=== PATIENT | female | born 1940 | race Caucasian/White ===

== ENCOUNTER 2018-02-07 08:59 | Day surgery (SDC) | payer OTHER ==
[2018-02-07] MEDS: TETRACAINE 0.5% UNIT-DOSE OP PRN ×2 (09:45→10:25)
[2018-02-07] MEDS: BETADINE OPTH PREP OP PRN ×2 (09:45→10:25)
[2018-02-07] MEDS: CYCLOGYL 2% OPTH OP PRN ×3 (09:46→09:56)
[2018-02-07] MEDS ORDERED: ZOFRAN 4 MG/2 ML IVP ONE (09:56)
[2018-02-07] MEDS ORDERED: LIDOCAINE 1% 20 ML MDV ID STA (09:56)
[2018-02-07] MEDS ORDERED: BRIMONIDINE TARTRATE 0.2% OPTH SOL OP PRN (09:56)
[2018-02-07 10:04] VITALS: TEMP 97.6
[2018-02-07] MEDS: DEX-MOXI-KETOR OPTH INJ 1/0.5/0.4 MG/ML IO ONE ×2 (10:26→10:32)
[2018-02-07] MEDS: BSS WITH EPINEPHRINE OP ONE ×2 (10:26→10:32)
[2018-02-07] MEDS: LIDOCAINE 1%/PHENYLEPHRINE 1.5% BSS (SURGERY) INTRAOCULA ONE ×2 (10:26→10:32)
[2018-02-07] MEDS ORDERED: ZOFRAN 4 MG/2 ML ONE (10:27)
[2018-02-07] MEDS ORDERED: SUBLIMAZE ONE (10:27)
[2018-02-07] MEDS ORDERED: VERSED ONE (10:27)
[2018-02-08 13:08] VITALS: BP 132/52
== END 2018-02-07 11:50 | disposition home or self-care (01) ==
LOC: SURG 08:59
PROVIDERS: ATTEND Ophthalmology
DX: H25.812 Combined forms of age-related cataract, left eye (principal)

== ENCOUNTER 2018-02-21 08:23 | Day surgery (SDC) ==
[2018-02-21] MEDS: TETRACAINE 0.5% UNIT-DOSE OP PRN ×2 (08:55→09:22)
[2018-02-21] MEDS: BETADINE OPTH PREP OP PRN ×2 (08:55→09:22)
[2018-02-21] MEDS: CYCLOGYL 2% OPTH OP PRN ×3 (08:56→09:06)
[2018-02-21] MEDS ORDERED: ZOFRAN 4 MG/2 ML IVP ONE (08:59)
[2018-02-21] MEDS ORDERED: LIDOCAINE 1% 20 ML MDV ID STA (08:59)
[2018-02-21] MEDS ORDERED: BRIMONIDINE TARTRATE 0.2% OPTH SOL OP PRN (08:59)
[2018-02-21 09:12] VITALS: TEMP 98.6
[2018-02-21] MEDS: BSS WITH EPINEPHRINE OP ONE ×2 (09:39→09:46)
[2018-02-21] MEDS: LIDOCAINE 1%/PHENYLEPHRINE 1.5% BSS (SURGERY) INTRAOCULA ONE ×2 (09:39→09:46)
[2018-02-21] MEDS ORDERED: VERSED ONE (09:40)
[2018-02-21] MEDS ORDERED: ZOFRAN 4 MG/2 ML ONE (09:40)
[2018-02-21] MEDS ORDERED: SUBLIMAZE ONE (09:40)
[2018-02-21] MEDS: DEX-MOXI-KETOR OPTH INJ 1/0.5/0.4 MG/ML IO ONE ×2 (09:40→09:55)
[2018-02-22 10:47] VITALS: BP 123/66
== END 2018-02-21 10:55 | disposition home or self-care (01) ==
LOC: SURG 08:23
PROVIDERS: ATTEND Ophthalmology
DX: H25.811 Combined forms of age-related cataract, right eye (principal)